=== PATIENT | male | born 1950 | race Caucasian/White ===

== ENCOUNTER → 2018-08-31 | Outpatient (CLI) | payer MEDICARE ==
[~2018-08-31] MED LIST: OMNIPAQUE 350 MG/ML, 100ML BOTTLE ONE
== END | disposition home or self-care (01) ==
LOC: CFH 08:03
PROVIDERS: ATTEND Urology
DX: K57.90 Diverticulosis of intestine, part unspecified, without perforation or abscess without bleeding (principal); N28.1 Cyst of kidney, acquired; C61 Malignant neoplasm of prostate
CPT/HCPCS: 74177; Q9967

== ENCOUNTER 2018-09-20 07:51 | Outpatient (CLI) | payer MEDICARE | END 2018-09-20 23:59 | disposition home or self-care (01) | LOC: PETCFH 07:51 | PROVIDERS: ATTEND Urology | DX: C61 Malignant neoplasm of prostate (principal) | CPT/HCPCS: 78306; A9503 ==

== ENCOUNTER 2018-09-28 09:31 | Outpatient (CLI) | payer MEDICARE | END 2018-09-28 23:59 | disposition home or self-care (01) | LOC: STAR 09:31 | PROVIDERS: ATTEND Nurse Practitioner Family | DX: Z01.818 Encounter for other preprocedural examination (principal); C61 Malignant neoplasm of prostate; R94.31 Abnormal electrocardiogram [ECG] [EKG] | CPT/HCPCS: 36415; 80053; 85025; 93005 ==

== ENCOUNTER 2018-10-12 05:56 | Day surgery (SDC) | payer MEDICARE ==
[~2018-10-12] VITALS: Ht 177.8 cm; Wt 92.0 kg
[~2018-10-12 05:56] MED LIST changes: +ALBU90AE INH; +FLUT100D INH; +LISI-167 PO; +MONT10TA6 PO; -OMNIPAQUE 350 MG/ML, 100ML BOTTLE ONE
[2018-10-12] MEDS ORDERED: LACTATED RINGERS 1,000 ML IV SCH (06:04)
[2018-10-12] MEDS ORDERED: GABAPENTIN 300 MG CAPSULE ONE (07:06)
[2018-10-12] MEDS ORDERED: ACETAMINOPHEN 500 MG TABLET ONE (07:06)
[2018-10-12] MEDS ORDERED: MIDAZOLAM 1 MG/ML, 2ML ONE (07:12)
[2018-10-12] MEDS ORDERED: DEXAMETHASONE 4 MG/ML, 1ML ONE ×2 (07:13)
[2018-10-12] MEDS ORDERED: FENTANYL PF 250 MCG/5ML ONE (07:13)
[2018-10-12] MEDS ORDERED: CEFAZOLIN 1,000 MG ONE ×2 (07:13)
[2018-10-12] MEDS ORDERED: PROPOFOL 10 MG/ML, 20ML ONE (07:13)
[2018-10-12] MEDS ORDERED: PHENYLEPHRINE 10 MG/ML ONE (07:13)
[2018-10-12] MEDS ORDERED: ROCURONIUM 10MG/ML,5ML ONE ×3 (07:13→10:41)
[2018-10-12] MEDS ORDERED: ONDANSETRON 2MG/ML, 2ML ONE (07:13)
[2018-10-12] MEDS ORDERED: LIDOCAINE-MPF 2% ,5ML ONE (07:13)
[2018-10-12] MEDS ORDERED: OPIUM/BELLADONNA SUPP.RECT 16.2-60 MG ONE (07:15)
[2018-10-12] MEDS ORDERED: BUPIVACAINE/PF 0.25% ONE (07:15)
[2018-10-12] MEDS ORDERED: THROMBIN 5,000 UNIT VIAL TP ONE (07:15)
[2018-10-12] MEDS ORDERED: EPINEPHRINE 1 MG/ML, 1ML ONE (07:16)
[2018-10-12] MEDS ORDERED: GABAPENTIN 300 MG CAPSULE PO ONE (07:30)
[2018-10-12] MEDS ORDERED: ACETAMINOPHEN 500 MG TABLET PO ONE (07:30)
[2018-10-12] MEDS ORDERED: GLYCOPYRROLATE 0.2MG/1ML, 5ML ONE (07:36)
[2018-10-12] MEDS ORDERED: METOCLOPRAMIDE 5 MG/ML, 2ML IV PRN (09:00)
[2018-10-12] MEDS ORDERED: SCOPOLAMINE PATCH, 1.5MG PATCH.TD72 TD PRN (09:00)
[2018-10-12] MEDS ORDERED: ALBUTEROL/IPRATROPIUM 2.5MG/0.5MG, 3 ML NPPB PRN (09:00)
[2018-10-12] MEDS ORDERED: MEPERIDINE/PF 25MG/0.5ML IVPush PRN (09:00)
[2018-10-12] MEDS ORDERED: ONDANSETRON 2MG/ML, 2ML IV PRN ×2 (09:00→14:30)
[2018-10-12] MEDS ORDERED: OXYcodone 5 MG/5 ML ORAL.SOL UDC PO PRN (09:00)
[2018-10-12] MEDS ORDERED: LORazepam 2 MG/ML, 1ML IVPush PRN (09:00)
[2018-10-12] MEDS ORDERED: hydrALAzine 20 MG/ML, 1ML IV PRN (09:00)
[2018-10-12] MEDS ORDERED: BUPIVACAINE/PF 0.25% INFIL ONE (10:45)
[2018-10-12] MEDS ORDERED: FENTANYL PF 100 MCG/2ML ONE (12:09)
[2018-10-12] MEDS ORDERED: OXYcodone 5 MG/5 ML ORAL.SOL UDC ONE (12:09)
[2018-10-12] MEDS: FENTANYL PF 100 MCG/2ML IV PRN ×2 (12:14→12:21)
[2018-10-12] MEDS ORDERED: HYDROmorphone 2 MG/ML, 1ML ONE (12:23)
[2018-10-12] MEDS: HYDROmorphone 2 MG/ML, 1ML IVPush PRN ×2 (12:25→12:40)
[2018-10-12] MEDS ORDERED: ACETAMINOPHEN 325 MG TABLET PO PRN (13:30)
[2018-10-12 13:56] VITALS: BP 146/89
[2018-10-12] MEDS ORDERED: ALBUTEROL SULFATE 2.5 MG/3 ML NPPB PRN (14:30)
[2018-10-12] MEDS ORDERED: FLOVENT MC SCH (14:30)
[2018-10-12] MEDS ORDERED: OXYcodone IR 5MG TABLET PO PRN (14:30)
[2018-10-12] MEDS ORDERED: OPIUM/BELLADONNA SUPP.RECT 16.2-60 MG PR PRN (14:30)
[2018-10-12] MEDS ORDERED: morphine SULFATE 10 MG/ML, 1ML IV PRN (14:30)
[2018-10-12] MEDS: D5%-0.45NACL+KCL 20MEQ 1,000 ML IV SCH ×2 (14:44→22:50)
[2018-10-12] MEDS: ACETAMINOPHEN 500 MG TABLET PO SCH ×2 (15:17→21:05)
[2018-10-12 19:25] VITALS: BP 129/81
[2018-10-12] MEDS ORDERED: MONTELUKAST 10 MG TABLET PO SCH (21:00)
[2018-10-12] MEDS: FLOVENT 100 MCG INH SCH (21:05)
[2018-10-13 00:43] VITALS: BP 112/69
[2018-10-13 04:27] VITALS: BP 121/72
[2018-10-13] MEDS: ACETAMINOPHEN 500 MG TABLET PO SCH ×2 (04:59→11:16)
[2018-10-13] MEDS: D5%-0.45NACL+KCL 20MEQ 1,000 ML IV SCH ×2 (05:32→12:30)
[2018-10-13 05:56] LABS: ANION GAP 7 mmol/L (5-15); CALCIUM 8.3 mg/dL (8.5-10.1); CHLORIDE 111 mmol/L (98-107)
[2018-10-13 05:57] LABS: CREATININE 0.95 mg/dL (0.7-1.3)
[2018-10-13] MEDS: FLOVENT 100 MCG INH SCH (07:25)
[2018-10-13 07:55] VITALS: BP 113/73
[2018-10-13] MEDS ORDERED: ENOXAPARIN 40 MG/0.4 ML SQ SCH (08:00)
[2018-10-13] MEDS ORDERED: LISINOPRIL 10 MG TABLET PO SCH (09:00)
[2018-10-13 13:37] VITALS: BP 143/87
== END 2018-10-13 13:49 | disposition home or self-care (01) ==
LOC: OUT 05:56 → 4NOR 13:10 → UNDOADMIN 13:29 → 4NOR 13:29 → OUT 13:29 → UNDODISIN 10-13 13:49 → OUT 10-13 13:49
PROVIDERS: ATTEND Urology
DX: C61 Malignant neoplasm of prostate (principal); C79.82 Secondary malignant neoplasm of genital organs; K66.0 Peritoneal adhesions (postprocedural) (postinfection); J45.909 Unspecified asthma, uncomplicated; Z88.0 Allergy status to penicillin; Z88.8 Allergy status to other drugs, medicaments and biological substances; Z96.643 Presence of artificial hip joint, bilateral
CPT/HCPCS: 36415; 38589; 55866; 80048; 85014; 85018; 86850; 86900; 88305; 88309; C1729; C1760; J0171; J0690; J1100; J1170; J1650; J2250; J2370; J2405; J2704; J3010; J3480; J3490; J7120; G0378

== ENCOUNTER 2018-10-19 08:06 | Outpatient (CLI) | payer MEDICARE | END 2018-10-19 23:59 | disposition home or self-care (01) | LOC: RAD 08:06 | PROVIDERS: ATTEND Urology | DX: C61 Malignant neoplasm of prostate (principal); M19.90 Unspecified osteoarthritis, unspecified site; J45.909 Unspecified asthma, uncomplicated; Z88.0 Allergy status to penicillin; Z88.8 Allergy status to other drugs, medicaments and biological substances; Z72.89 Other problems related to lifestyle | CPT/HCPCS: 74430 ==

== ENCOUNTER → 2019-03-21 | Outpatient (CLI) | payer MEDICARE | END | disposition home or self-care (01) | LOC: RAD 15:28 | PROVIDERS: ATTEND Family Medicine | DX: M79.661 Pain in right lower leg (principal) ==

== ENCOUNTER → 2020-03-14 | Outpatient (CLI) | payer MEDICARE ==
[~2020-03-14] MED LIST changes: +OMNIPAQUE 350 MG/ML, 75ML BOTTLE ONE
== END | disposition home or self-care (01) ==
LOC: CFH 08:59
PROVIDERS: ATTEND Physician Assistant
DX: R91.8 Other nonspecific abnormal finding of lung field (principal)
CPT/HCPCS: 71260; 82565; Q9967